=== PATIENT | female | born 2000 | race African-American/Black ===

== ENCOUNTER 2020-01-09 02:33 | Observation (INO) ==
[2020-01-09] MEDS ORDERED: ACETAMINOPHEN 1,000 MG/100 ML VIAL IV STA (02:52)
[2020-01-09] MEDS ORDERED: ONDANSETRON INJ 2 MG/ML 2 ML VIAL IV STA (02:53)
[2020-01-09] MEDS ORDERED: SODIUM CHLORIDE 0.9% 1000ML 1,000 ML IV SCH (03:00)
[2020-01-09 03:29] LABS: Basophils # (auto) 0.03 K/uL (0-0.2); Basophils % (auto) 0.2 %; Eosinophils # (auto) 0.04 K/uL (0-0.5); Eosinophils % (auto) 0.2 %; Hematocrit (blood only) 36.6 % (37-47); Immature Granulocytes # (auto) 0.05 K/uL (0.00-0.02); Immature Granulocytes % (auto) 0.3 %; Lymphocytes # (auto) 1.31 K/uL (1.2-3.4); Lymphocytes % (auto) 7.9 %; Mean Corpuscular Hgb Conc 35.5 g/dL (32-36); Mean Corpuscular Volume 87.1 fL (80-100); Mean Platelet Volume 9.2 fL (7.4-10.4); Monocytes # (auto) 1.69 K/uL (0.11-0.59); Monocytes % (auto) 10.2 %; Neutrophils # (auto) 13.44 K/uL (1.4-6.5); Neutrophils % (auto) 81.2 %; Platelet Count 307 K/uL (130-400); RDW Coefficient of Variation 12.9 % (11.5-14.5); RDW Standard Deviation 41.4 fL (36.4-46.3); White Blood Count 16.56 K/uL (4.8-10.8)
[2020-01-09 03:51] LABS: Albumin Globulin Ratio 0.9 (0.9-2); Albumin Level 3.5 gm/dl (3.4-5.0); BUN Creatinine Ratio 8.5 (10-20); Bilirubin,Total 1.4 mg/dl (0.2-1); Creatinine Clr Calc Pharmacy 115.9 ml/min; Est GFR (African American) 128.8; Est GFR (Non-African American) 111.1; Globulin 4.1 gm/dl (2.5-4.0); Magnesium 1.7 mg/dl (1.8-2.4); Potassium 3.7 mmol/L (3.5-5.1); Total Protein 7.6 gm/dl (6.4-8.2)
[2020-01-09 04:54] LABS: Appearance Urine Clear (Clear); Bilirubin Urine Negative (Negative); Blood Urine Negative (Negative); Color Urine Yellow; Glucose Urine UA Negative (Negative); Ketones Urine Negative (Negative); Leukocyte Esterase Urine Negative (Negative); Nitrite Urine Negative (Negative); Protein Urine Negative (Negative); Specific Gravity Urine 1.007 (1.000-1.030); Urobilinogen Urine Negative (Negative); pH Urine 6.5 (4.5-7.5)
[2020-01-09] MEDS ORDERED: IOVERSOL 100ml IV PRN (05:21)
[2020-01-09] MEDS ORDERED: cefOXitin 2,000 MG/60 ML BAG IV STA ×2 (06:04→06:54)
--- NOTE | 2020-01-09 06:49 | Surgery Consultation ---
Date of Consultation January 09, 2020 Assessment & Plan (1) Acute appendicitis: pt is a 19 year-old female who presents to ER with 2 days history RLQ pain, CT scan- acute appendicitis, IMP: acute appendicitis, Plan, I recommend to do laparoscopic appendectomy, possible open, D/W benefits, risks and alternatives of the surgery, the risks - infection, bleeding, abscess, pt understood, she signed consent, I answered all questions, cefoxitin 2gm IV, now, History of Present Illness History of Present Illness CC: Nausea HPI: 19F arrives for evaluation of nausea. Patient with 12 hours of nausea. Started after eating dinner. Associated epigastric and left upper abdominal pain. No radiation of pain. no vomiting. Slightly loose stools earlier. She used griselda seltzer and motrin without improvement. Symptoms wax and wane. No fevers, chills, syncope, chest pain, headache, neck pain, sob, back pain, rashes, swelling, nor other symptoms. No trauma nor injuries. No similar symptoms previously. I ( Rafael Loco MD ) got a call for consult acute appendicitis. I reviewed pt's H/P and CT scan with pt, pt is still have RLQ pain, ROS: See above HPI for pertinent positives & negatives. A total of 10 systems reviewed and were otherwise negative. Past Medical History: None Past Surgical History: oral Surgery Family History: Father with sinus infection Social History: [place] [employer] student, no smoking, from [place] Home Medications: None Allergies: None Vitals: Blood Pressure 128/80, Pulse 88, Resp 16, T 36.5C, O2 97% on RA Allergies Allergy/AdvReac Type Severity Reaction Status Date / Time No Known Allergies Allergy Unverified 01/09/20 02:43 Home Medications Home Medications Medication Instructions Recorded Confirmed Type No Known Home Medications 01/08/20 01/09/20 History Patient History Social History Feels Safe at Home: Yes Smoking Status: Never smoker Physical Exam Constitutional: WD/WN, vitals as above well developed and well nourished Eyes: PERRL, conjunctivae normal, anicteric sclerae ENMT: external ear and nose normal, oropharynx normal Neck: trachea midline, no thyromegaly Respiratory: normal respiratory effort, lungs clear to auscultation normal respiratory effort Cardiovascular: RRR, no murmur, no edema Rate/Rhythm: regular rate and regular rhythm Heart Sounds: normal S1 and normal S2 Gastrointestinal (Abdomen): normal bowel sounds, soft, nontender, no hepatosplenomegaly Percussion/Palpation: + abdomen tender and abdomen soft tenderness at RLQ, rebound pain +-, BS +, no distend, Musculoskeletal: no cyanosis or clubbing, extremities motor strength 5/5 Skin: no rashes, warm and dry Neurologic: patellar DTR's 2+ bilat, sensation intact Psychiatric: Orientation: alert and oriented x 3 Results & Data Vital Signs (Past 12 Hours) Vital Signs Temp Pulse Pulse Resp BP BP Pulse Ox 01/09/20 06:00 95 H 18 115/60 99 01/09/20 05:00 91 H 16 107/77 99 01/09/20 04:00 98 H 18 115/69 98 01/09/20 03:13 106 H 18 123/72 98 01/09/20 02:35 37.6 C H 106 H 18 127/77 97 Laboratory Results Abnormal lab results 01/09/20 01/09/20 Range/Units 03:00 03:00 WBC 16.56 H (4.8-10.8) K/uL Hct 36.6 L (37-47) % Immature Gran # (Auto) 0.05 H (0.00-0.02) K/uL Neut # (Auto) 13.44 H (1.4-6.5) K/uL Garza # (Auto) 1.69 H (0.11-0.59) K/uL BUN/Creatinine Ratio 8.5 L (10-20) Glucose 108 H (70-99) mg/dl Magnesium 1.7 L (1.8-2.4) mg/dl Total Bilirubin 1.4 H D (0.2-1) mg/dl AST 9 L (15-37) U/L Globulin 4.1 H (2.5-4.0) gm/dl Diagnostic Findings CT scan- acute appendicitis, 11mm
--- NOTE | 2020-01-09 06:50 | CT Scan Report ---
CT abd pelvis oral and IV con CT DOSE: 316.43 mGy.cm HISTORY: Pain. Nausea. abd pain TECHNIQUE: Multiaxial CT images of the abdomen and pelvis were performed following the use of intrave nous and oral contrast. A dose lowering technique was utilized adhering to the principles of ALARA. COMPARISON STUDY: None. FINDINGS: The lung bases are clear. The liver, spleen, gallbladder, pancreas, kidneys, and adrenal gl ands are within normal limits. No bowel wall thickening or obstruction. The pelvic organs are unremar kable. No suspicious lytic or blastic osseous lesions. The appendix is distended to a maximum diameter of 1 cm. There are findings of mild to moderate peria ppendiceal infiltrative changes trace amount of periappendiceal fluid. No evidence for drainable abscess or collection. Uterus is anteflexed. No free fluid within the pelvi c cul-de-sac. IMPRESSION: 1. Acute appendicitis. 2. Mild to moderate periappendiceal infiltrative change. 3. No evidence for drainable abscess or collection. ACT 112: Negative or not required by law. The above report was generated using voice recognition software. It may contain grammatical, syntax or spelling errors. Electronically signed by: Jean Odom M.D. 01/09/2020 6:49 AM
[2020-01-09] MEDS ORDERED: MoRPHine SULFATE 4 MG/ML 1 ML CARP\\VIAL IV STA (06:56)
--- NOTE | 2020-01-09 07:14 | Anesthesiology Consultation ---
Date of Service January 09, 2020 Assessment & Plan (1) Encounter for pre-operative examination: Chart Review Chart Review: Acceptable Risk for Surgery and Patient NOT seen in Pre Admission Testing Consults Requested none ASA ASA2 Proposed Anesthesia Anesthesia Type: General Risk / Benefits Reviewed With: PT / POA / Parent / Guardian, Accepts Plan and Informed Consent Obtained History Surgery Operation Date: 01/09/20 10:20 Proposed Procedures p Laparoscopic Appendectomy - Rafael Loco MD Height/Weight Height: 5 ft 5 in Weight: 72 kg Allergies Allergy/AdvReac Type Severity Reaction Status Date / Time No Known Allergies Allergy Unverified 01/09/20 02:43 Medications Home Medications Medication Instructions Recorded Confirmed Last Taken No Known Home Medications 01/08/20 01/09/20 Unknown Active Medications Generic Name Dose Route Start Last Admin Trade Name Freq PRN Reason Stop Dose Admin Ioversol 93 ml 01/09/20 05:21 01/09/20 05:22 Optiray 320 100ml IV 01/13/20 05:20 93 ml ONCE PRN Administration Interaction Checking NPO Date Last Intake of Fluids: 01/09/20 Time Last Intake of Fluids: 05:15 Date Last Intake of Solids: 01/08/20 Time Last Intake of Solids: 17:00 Past Medical History Medical History (Updated 01/09/20 @ 08:23 by Elizabeth Haynes MD) No significant medical problems Exercise / Class Metabolic Activity 1 > 8 Run/Swim/Ski/Tennis Past Family History Family History (Updated 01/09/20 @ 08:24 by Elizabeth Haynes MD) Mother Borderline diabetes mellitus Past Surgical History Surgical History (Updated 01/09/20 @ 08:22 by Elizabeth Haynes MD) History of oral surgery Past Anesthesia History No Hx of Anesthesia Complications History of PONV No Hx of PONV Social History Smoking Status: Never smoker Do You Dip or Chew Tobacco: No Hx Alcohol Use: Yes alcohol intake frequency: a few times a month Hx Substance Use: No Review of Systems Positive for abdominal pain and nausea, denies vomiting Physical Exam Vital Signs Last Vital Signs Temp 37.4 C 01/09/20 07:52 Pulse 109 H 01/09/20 07:52 Resp 20 01/09/20 07:52 BP 132/88 01/09/20 07:52 Pulse Ox 99 01/09/20 07:52 Constitutional not obese ENMT Mouth: no TMJ abnormality and oral opening not small Thyromental Distance: > or= 3.5 Finger Breadths Mallampati Class: III Neck normal visual inspection; neck extension not limited Respiratory normal respiratory effort Auscultation: lungs clear to auscultation bilaterally Cardiovascular Rate/Rhythm: regular rate and regular rhythm Heart Sounds: no murmur Neurologic moves all extremities Psychiatric Orientation: alert and oriented x 3 Testing Laboratory Results 01/09/20 03:00 01/09/20 03:00 Urine Color Yellow 01/09/20 04:17 Urine Appearance Clear (Clear) 01/09/20 04:17 Urine pH 6.5 (4.5-7.5) 01/09/20 04:17 Ur Specific [place] 1.007 (1.000-1.030) 01/09/20 04:17 Urine Protein Negative (Negative) 01/09/20 04:17 Urine Glucose (UA) Negative (Negative) 01/09/20 04:17 Urine Ketones Negative (Negative) 01/09/20 04:17 Urine Nitrite Negative (Negative) 01/09/20 04:17 Ur Leukocyte Esterase Negative (Negative) 01/09/20 04:17 01/09/20 04:17 POC Ur Test NEG
--- NOTE | 2020-01-09 07:35 | History & Physical Bridge Note ---
Date of Service January 09, 2020 History & Physical Bridge Note I have examined the patient, reviewed the History & Physical and in the interval since the performance of the History & Physical I have noted the following changes of clinical significance: no changes noted
[2020-01-09] MEDS ORDERED: BACITRACIN OINT 15 GM TUBE ONE (08:00)
[2020-01-09] MEDS ORDERED: BUPIVACAINE 0.5 % 5 MG/1 ML MPF 30ML VIAL ONE (08:00)
[2020-01-09] MEDS ORDERED: LIDOCAINE HCL 1% 20 ML VIAL ONE (08:01)
[2020-01-09] MEDS ORDERED: fentaNYL citrate 100 MCG/2 ML VIAL ONE ×2 (08:14→08:52)
[2020-01-09] MEDS ORDERED: MIDAZOLAM HCL 1 MG/ML 2ML VIAL ONE (08:14)
[2020-01-09] MEDS ORDERED: ONDANSETRON INJ 2 MG/ML 2 ML VIAL IV PRN ×2 (08:31→09:36)
[2020-01-09] MEDS ORDERED: ePHEDrine sulfate 50 MG/ML AMP IV PRN (08:31)
[2020-01-09] MEDS ORDERED: ATROPINE SULFATE 0.1 MG/ML 10ML SYR IV PRN (08:31)
[2020-01-09] MEDS ORDERED: HYDROmorphone INJ 1 MG/ML SYRINGE IV PRN (08:31)
[2020-01-09] MEDS ORDERED: fentaNYL citrate 100 MCG/2 ML VIAL IV PRN (08:31)
--- NOTE | 2020-01-09 09:24 | Post Operative Brief Note ---
Immediate Post Op Note v1 Date of Surgery January 09, 2020 Pre & Post Diagnosis Operation Date: 01/09/20 10:20 Pre-Op Diagnosis: acute appendicitis Post-Op Diagnosis: acute appendicitis I identified the patient and participated in the time-out.: Yes Procedure Operation Date: 01/09/20 10:20 Actual Procedures p Laparoscopic Appendectomy(Not Applicable) - Rafael Loco MD Surgeon Rafael Loco MD [employer] GENESIS [place] Estimated Blood Loss 10 Findings Consistent with Post-Op Diagnosis Fluids 700ml Specimens appendix Anesthesia Type General Complications none Disposition Accompanied Patient To Recovery: Yes Disposition: Recovery Room Overlapping Procedure I was immediately available: during the entire case.
[2020-01-09] MEDS ORDERED: HYDROmorphone INJ 0.5 MG/0.5 ML SYR IV PRN (09:36)
[2020-01-09] MEDS ORDERED: PROPOFOL IV EMULSION 10 MG/ML 20 ML VIAL IV ONE (09:56)
[2020-01-09] MEDS ORDERED: ONDANSETRON INJ 2 MG/ML 2 ML VIAL ONE (09:56)
[2020-01-09] MEDS ORDERED: NEOSTIGMINE METHYLSULFATE 5 MG/5 ML SYR ONE (09:56)
[2020-01-09] MEDS ORDERED: LIDOCAINE HCL 2% 2 ML VIAL/AMP(20MG/ML) INFIL ONE (09:56)
[2020-01-09] MEDS ORDERED: DEXAMETHASONE SOD INJ 4 MG/ML VIAL ONE (09:56)
[2020-01-09] MEDS ORDERED: GLYCOPYRROLATE 0.2 MG/ML VIAL ONE (09:56)
[2020-01-09] MEDS ORDERED: ROCURONIUM BROMIDE 10 MG/ML 5 ML VIAL ONE (09:56)
--- NOTE | 2020-01-09 10:07 | Operative Report ---
DATE OF OPERATION: 01/09/2020 PREOPERATIVE DIAGNOSIS: Acute appendicitis. POSTOPERATIVE DIAGNOSIS: Acute appendicitis. OPERATIVE PROCEDURE: Laparoscopic appendectomy. SURGEON: Rafael Loco MD. ANESTHESIA: General. ESTIMATED BLOOD LOSS: About 10 mL. FINDINGS: Acute appendicitis. COMPLICATIONS: None. INDICATIONS FOR THE PROCEDURE: This is a 19-year-old female who presented to the ED with couple days' history of right lower quadrant pain. The patient had a CT scan diagnosis of acute appendicitis. I recommended to do laparoscopic appendectomy, possible open. I did talk to the patient about the benefit, risk, alternate procedure. I indicated the risks may include but not limited to such as bleeding, infection, injury to the bowel, abscess. The patient understands. I also talked to the patient's mom on the phone about the procedure, benefits, risks and alternatives to the procedure. She understands. The patient signed informed consent and I answered all questions. DETAILS OF PROCEDURE: We brought the patient to the OR, put the patient in supine position. The patient received SCD on bilateral legs to prevent DVT. Also, patient received 2 g of cefoxitin IV for prophylactic antibiotic and the patient received general anesthesia without difficulty. The abdomen was prepped and draped in routine sterile fashion. After timeout, I injected the local anesthesia by using 1% lidocaine mixed with 0.5% Marcaine just above the umbilicus. Then, I made a small incision just above the umbilicus, opened fascia and opened peritoneum under direct vision, put a Maximo trocar in, connected to CO2 to create pneumoperitoneum, flow rate is 6 liters per minute, pressure not more than 14 mmHg. Once we got a nice pneumoperitoneum, we put a camera in, looked around the abdomen and the abdomen shows there was some free flowing, yellow-colored fluid in the pelvic area. We suctioned and then we found the patient had significant inflammation of appendix with enlarged appendix to a size of about 1.1 cm and also there was some pus on the surface of the appendix. At this moment, we mobilized the appendix and used the harmonic to take down the appendiceal. Then, we used the 45 mm Endo-AFSHIN staple for transection on the base of the appendix. Again, the appendix shows early gangrene. Then, we rechecked the staple line. It is intact, no leak, no active bleeding. Then, we removed the appendix through the catch bag. Then, we reinserted Maximo trocar in, connected to CO2 to create pneumoperitoneum, again looked around the abdomen, the staple line intact and no leak and no active bleeding. Then, we removed all trocars under direct vision. No active bleeding from the trocar site. Pneumoperitoneum was released. I now closed the umbilical incision, fascial layer by using #1 Vicryl [id number] x2, closed the subcutaneous layer by using 2-0 Vicryl interruptedly, closed skin by using 4-0 Vicryl continuous running. Once we put the camera in, we did another two 5 mm trocars on the left lower quadrant area. Once all trocars in, we did the above appendectomy. Once we finished the procedure, we removed the specimen and then we removed all trocars under direct vision. No active bleeding from the trocar sites. Then, we closed all the incision and once we closed the umbilical incision, then we closed another two 5 mm trocar site skin only by using 4-0 Vicryl and we put the dressing on. The patient tolerated the procedure well. All instrument, needle and sponge count were correct x2 at the end of the case. The patient was transferred to recovery room in stable condition. After the procedure, I did talk to the patient's mom on the phone about the OR finding and the procedure we did, she understands. I attest to the content of the Intraoperative Record and any orders documented therein. Any exception s are noted below.
--- NOTE | 2020-01-09 10:32 | Anesthesiology Progress Note ---
Date of Service January 09, 2020 Anesthesia Post Procedure Vital Signs Vital Signs: Temp Pulse Pulse Pulse Resp BP BP 01/09/20 10:20 36.7 C 71 16 107/68 01/09/20 10:10 72 16 107/69 01/09/20 10:00 77 17 109/65 01/09/20 09:50 82 16 103/63 01/09/20 09:42 36.4 C L 95 H 20 105/65 01/09/20 07:52 37.4 C 109 H 20 132/88 01/09/20 07:02 94 H 16 144/81 H 01/09/20 06:00 95 H 18 115/60 01/09/20 05:00 91 H 16 107/77 01/09/20 04:00 98 H 18 115/69 01/09/20 03:13 106 H 18 123/72 01/09/20 02:35 37.6 C H 106 H 18 127/77 Pulse Ox 01/09/20 10:20 100 01/09/20 10:10 100 01/09/20 10:00 100 01/09/20 09:50 100 01/09/20 09:42 100 01/09/20 07:52 99 01/09/20 07:02 97 01/09/20 06:00 99 01/09/20 05:00 99 01/09/20 04:00 98 01/09/20 03:13 98 01/09/20 02:35 97 Pain Intensity Medial Abdomen: Pain Intensity: 6 Transfer of Care Handoff Completed per policy Notes Mental Status: alert / awake / arousable and participated in evaluation Patient Amnestic to Procedure: Yes Nausea / Vomiting: adequately controlled Pain: adequately controlled Airway Patency, RR, SpO2: stable & adequate BP & HR: stable & adequate Hydration State: stable & adequate Anesthetic Complications: no major complications apparent and Pt Satisfied with anesthetic care
[2020-01-09] MEDS: LACTATED RINGER'S 1,000 ML IV SCH ×2 (11:08→23:38)
[2020-01-09] MEDS ORDERED: ACETAMINOPHEN 325 MG TAB PO PRN (12:02)
[2020-01-09] MEDS: OXYCODONE/ACETAMINOPHEN 5mg/325mg TAB PO PRN ×2 (15:01→19:14)
[2020-01-10] MEDS: OXYCODONE/ACETAMINOPHEN 5mg/325mg TAB PO PRN ×2 (05:26→09:52)
[2020-01-10 07:20] LABS: Basophils # (auto) 0.02 K/uL (0-0.2); Basophils % (auto) 0.1 %; Eosinophils # (auto) 0.07 K/uL (0-0.5); Eosinophils % (auto) 0.5 %; Hematocrit (blood only) 31.5 % (37-47); Hemoglobin 10.7 g/dL (12.0-16.0); Immature Granulocytes # (auto) 0.05 K/uL (0.00-0.02); Immature Granulocytes % (auto) 0.3 %; Lymphocytes # (auto) 2.32 K/uL (1.2-3.4); Mean Corpuscular Hemoglobin 30.1 pg (25-34); Mean Corpuscular Volume 88.5 fL (80-100); Mean Platelet Volume 9.3 fL (7.4-10.4); Monocytes % (auto) 6.5 %; Neutrophils % (auto) 77.6 %; Platelet Count 266 K/uL (130-400); RDW Coefficient of Variation 13.1 % (11.5-14.5); RDW Standard Deviation 42.9 fL (36.4-46.3); Red Blood Count 3.56 M/uL (4.2-5.4); White Blood Count 15.46 K/uL (4.8-10.8)
--- NOTE | 2020-01-10 08:03 | Emergency Department Note ---
History of Present Illness General Chief complaint: Abdominal Pain Stated complaint: SEVERE ABDOMINAL PAIN,FATIGUE Time Seen by Provider: 01/09/20 02:40 History of Present Illness Maximum Pain Intensity: 5 This is a 19-year-old female presenting to the emergency department for evaluation of continued abdominal pain over the past 2 days. The patient was initially seen and evaluated at this facility yesterday for this complaint. At that time her discomfort had occurred after eating and she did have diarrheal illness. Blood work did show a slightly elevated white blood cell count of around 12,000 but no other significant abnormalities. She did have a biliary ultrasound that was negative. The patient did feel well for discharge home, and slept most of the day today. She did try to eat around 5 PM, but developed return of her abdominal discomfort. Her pain seems to have migrated into the lower abdomen bilaterally, which is new. She has not had any distinct fever at home. Her diarrhea has stopped. She is nauseated and tired. No chest pain, chest tightness, or shortness of breath. She rates her current discomfort a 5/10. Home Medications Home Medications Medication Instructions Recorded Confirmed Type No Known Home Medications 01/08/20 01/09/20 History Allergies Allergy/AdvReac Type Severity Reaction Status Date / Time No Known Allergies Allergy Unverified 01/09/20 02:43 Past Med/Surg History Medical History No significant medical problems Surgical History History of oral surgery Family History (Updated 01/09/20 @ 08:24 by Elizabeth Haynes MD) Mother Borderline diabetes mellitus Social History Preferred Language: Tajik Communication Ability: Effective X Ray Control Equipment Repairer Required: No Beliefs That Will Affect Care: None Feels Safe at Home: Yes Smoking Status: Never smoker Do You Dip or Chew Tobacco: No ; Hx Alcohol Use: Yes Hx Substance Use: No Review of Systems A total of 10 systems reviewed and were otherwise negative Physical Exam Vital Signs Vital Signs Temp Pulse Resp BP Pulse Ox 37.6 C H 106 H 18 127/77 97 01/09/20 02:35 01/09/20 02:35 01/09/20 02:35 01/09/20 02:35 01/09/20 02:35 VITALS: Vitals are noted on the nurse's note and reviewed by myself. Vital signs with tachycardia and mild fever GENERAL: Well-developed, well-nourished, female, who is in no acute distress and resting comfortably. Patient is cooperative with the examination. HEAD: Normocephalic atraumatic. EARS: External ear normal. External auditory canals clear, tympanic membranes pearly martin without erythema or effusion bilaterally. EYES: Pupils equal round and reactive to light and accommodation. Conjunctivae without injection, sclerae without icterus. Extraocular movements intact. NOSE: Patent, turbinates without inflammation or discharge. MOUTH: Mucous membranes moist. Tonsils are not enlarged. Pharynx without erythema, blood, or exudate. Uvula midline. Airway patent. NECK: Supple without nuchal rigidity. No lymphadenopathy. No thyromegaly. Cervical spine is nontender. HEART: Regular rate and rhythm without murmurs gallops or rubs. LUNGS: Clear to auscultation bilaterally without wheezes, rales or rhonchi. No retractions or accessory muscle use. ABDOMEN: Positive normal bowel sounds x 4. Soft left lower and right lower quadrant tenderness. No rebound or guarding. MUSCULOSKELETAL: No muscle atrophy, erythema, or edema noted. Full range of motion in all extremities. SKIN: The skin was without rashes, erythema, edema, or bruising. Capillary refill less than 2 seconds. Course Administered Medications Acetaminophen (Tylenol) 650 mg PO Q4H PRN PRN Reason: Mild Pain Stop: 02/08/20 12:01 Last Admin: 01/09/20 23:38 Dose: 650 mg Documented by: [id number] Cefoxitin Sodium 1,000 mg/ (Dextrose) 60 mls @ 100 mls/hr IV Q6H [facility] Stop: 01/11/20 11:59 Last Infusion: 01/10/20 06:02 Dose: 0 mls/hr Documented by: [id number] Admin: 01/10/20 05:26 Dose: 100 mls/hr Documented by: [id number] Infusion: 01/10/20 00:19 Dose: 0 mls/hr Documented by: [id number] Admin: 01/09/20 23:39 Dose: 100 mls/hr Documented by: [id number] Infusion: 01/09/20 18:08 Dose: 0 mls/hr Documented by: [id number] Admin: 01/09/20 17:32 Dose: 100 mls/hr Documented by: [id number] Infusion: 01/09/20 12:43 Dose: 0 mls/hr Documented by: [id number] Admin: 01/09/20 12:20 Dose: Not Given Documented by: [id number] Admin: 01/09/20 12:07 Dose: 100 mls/hr Documented by: [id number] Lactated Ringer's (Lr) 1,000 mls @ 80 mls/hr IV .[id number] LISA Stop: 02/08/20 09:44 Last Admin: 01/09/20 23:38 Dose: 80 mls/hr Documented by: [id number] Infusion: 01/09/20 23:38 Dose: 80 mls/hr Documented by: [id number] Admin: 01/09/20 11:08 Dose: 80 mls/hr Documented by: [id number] Oxycodone/Acetaminophen (Percocet 5mg/325mg) 1 tab PO Q4H PRN PRN Reason: Pain Stop: 01/23/20 09:35 Last Admin: 01/10/20 05:26 Dose: 1 tab Documented by: [id number] Admin: 01/09/20 19:14 Dose: 1 tab Documented by: [id number] Admin: 01/09/20 15:01 Dose: 1 tab Documented by: [id number] Discontinued Medications Bacitracin (Bacitracin) Confirm Administered Dose 45 appln .ROUTE .STK-MED ONE Stop: 01/09/20 08:01 Last Admin: 01/09/20 09:11 Dose: 5 appln Documented by: [id number] Bupivacaine HCl (Marcaine 0.5% Mpf) Confirm Administered Dose 30 ml .ROUTE .STK- MED ONE Stop: 01/09/20 08:01 Last Admin: 01/09/20 09:21 Dose: 20 ml Documented by: [id number] Sodium Chloride (Nss 1000ml) 1,000 mls @ 999 mls/hr IV .Q1H1M LISA Stop: 01/09/20 04:00 Last Infusion: 01/09/20 04:20 Dose: 0 mls/hr Documented by: [id number] Admin: 01/09/20 03:13 Dose: 999 mls/hr Documented by: [id number] Acetaminophen (Ofirmev) 1,000 mg in 100 mls @ 400 mls/hr IV NOW STA Stop: 01/09/20 03:06 Last Infusion: 01/09/20 03:28 Dose: 0 mls/hr Documented by: [id number] Admin: 01/09/20 03:13 Dose: 400 mls/hr Documented by: [id number] Cefoxitin Sodium (Mefoxin) 2,000 mg in 60 mls @ 100 mls/hr IV NOW STA Stop: 01/09/20 06:39 Last Infusion: 01/09/20 06:57 Dose: 0 mls/hr Documented by: [id number] Admin: 01/09/20 06:23 Dose: 100 mls/hr Documented by: [id number] Ioversol (Optiray 320 100ml) 93 ml IV ONCE PRN PRN Reason: Interaction Checking Stop: 01/13/20 05:20 Last Admin: 01/09/20 05:22 Dose: 93 ml Documented by: [id number] Lidocaine HCl (Xylocaine 1% (Local)) Confirm Administered Dose 20 ml .ROUTE .Tenders.es-MED ONE Stop: 01/09/20 08:02 Last Admin: 01/09/20 09:22 Dose: 20 ml Documented by: [id number] Morphine Sulfate (Morphine Sulfate) 4 mg IV NOW STA Stop: 01/09/20 06:57 Last Admin: 01/09/20 07:03 Dose: 4 mg Documented by: [id number] Ondansetron HCl (Zofran) 4 mg IV NOW STA Stop: 01/09/20 02:54 Last Admin: 01/09/20 03:13 Dose: 4 mg Documented by: [id number] Medical Decision Making Differential Diagnosis Differential diagnosis: Etiologies such as biliary colic, cholecystitis, hepatitis, pancreatitis, card iac disease, pancreatitis, gastritis, peptic ulcer disease, appendicitis, cystitis, diverticulitis, mesenteric ischemia, inflammatory bowel disease, ileus, bowel obstruction, testicular/adnexal torsion, aortic pathology, shingles, as well as others were considered Laboratory Data Result diagrams: 01/10/20 07:01 01/09/20 03:00 Lab Results 01/09/20 01/09/20 01/09/20 Range/Units 03:00 03:00 03:18 WBC 16.56 H (4.8-10.8) K/uL RBC 4.20 (4.2-5.4) M/uL Hgb 13.0 (12.0-16.0) g/dL Hct 36.6 L (37-47) % MCV 87.1 (80-100) fL MCH 31.0 (25-34) pg MCHC 35.5 (32-36) g/dL RDW Std Deviation 41.4 (36.4-46.3) fL RDW Coeff of Patti 12.9 (11.5-14.5) % Plt Count 307 (130-400) K/uL MPV 9.2 (7.4-10.4) fL Immature Gran % (Auto) 0.3 % Neut % (Auto) 81.2 % Lymph % (Auto) 7.9 % [place] % (Auto) 10.2 % Eos % (Auto) 0.2 % Baso % (Auto) 0.2 % Immature Gran # (Auto) 0.05 H (0.00-0.02) K/uL Neut # (Auto) 13.44 H (1.4-6.5) K/uL Lymph # (Auto) 1.31 (1.2-3.4) K/uL [place] # (Auto) 1.69 H (0.11-0.59) K/uL Eos # (Auto) 0.04 (0-0.5) K/uL Baso # (Auto) 0.03 (0-0.2) K/uL Sodium 137 (136-145) mmol/L Potassium 3.7 (3.5-5.1) mmol/L Chloride 106 (98-107) mmol/L Carbon Dioxide 25 (21-32) mmol/L Anion Gap 6.0 (3-11) BUN 7 D (7-18) mg/dl Creatinine 0.77 (0.6-1.2) mg/dl Est Cr Clr Drug Dosing 115.9 ml/min Est GFR ( Amer) 128.8 Est GFR (Non-Af Amer) 111.1 BUN/Creatinine Ratio 8.5 L (10-20) Glucose 108 H (70-99) mg/dl Lactate (0.4-2.0) mmol/L Calcium 9.0 (8.5-10.1) mg/dl Magnesium 1.7 L (1.8-2.4) mg/dl Total Bilirubin 1.4 H D (0.2-1) mg/dl AST 9 L (15-37) U/L ALT 19 (12-78) U/L Alkaline Phosphatase 70 (45-117) U/L Total Protein 7.6 (6.4-8.2) gm/dl Albumin 3.5 (3.4-5.0) gm/dl Globulin 4.1 H (2.5-4.0) gm/dl Albumin/Globulin Ratio 0.9 (0.9-2) Lipase 86 (73-393) U/L Urine Color Urine Appearance (Clear) Urine pH (4.5-7.5) Ur Specific Bo[place] (1.000-1.030) Urine Protein (Negative) Urine Glucose (UA) (Negative) Urine Ketones (Negative) Urine Blood (Negative) Urine Nitrite (Negative) Urine Bilirubin (Negative) Urine Urobilinogen (Negative) Ur Leukocyte Esterase (Negative) POC Ur Test (NEG) Influenza Type A Ag Neg for Influ A (Neg) Influenza Type B Ag Neg for Influ B (Neg) 01/09/20 01/09/20 01/09/20 Range/Units 03:21 04:17 04:17 WBC (4.8-10.8) K/uL RBC (4.2-5.4) M/uL Hgb (12.0-16.0) g/dL Hct (37-47) % MCV (80-100) fL MCH (25-34) pg MCHC (32-36) g/dL RDW Std Deviation (36.4-46.3) fL RDW Coeff of Patti (11.5-14.5) % Plt Count (130-400) K/uL MPV (7.4-10.4) fL Immature Gran % (Auto) % Neut % (Auto) % Lymph % (Auto) % [place] % (Auto) % Eos % (Auto) % Baso % (Auto) % Immature Gran # (Auto) (0.00-0.02) K/uL Neut # (Auto) (1.4-6.5) K/uL Lymph # (Auto) (1.2-3.4) K/uL [place] # (Auto) (0.11-0.59) K/uL Eos # (Auto) (0-0.5) K/uL Baso # (Auto) (0-0.2) K/uL Sodium (136-145) mmol/L Potassium (3.5-5.1) mmol/L Chloride (98-107) mmol/L Carbon Dioxide (21-32) mmol/L Anion Gap (3-11) BUN (7-18) mg/dl Creatinine (0.6-1.2) mg/dl Est Cr Clr Drug Dosing ml/min Est GFR ( Amer) Est GFR (Non-Af Amer) BUN/Creatinine Ratio (10-20) Glucose (70-99) mg/dl Lactate 0.8 (0.4-2.0) mmol/L Calcium (8.5-10.1) mg/dl Magnesium (1.8-2.4) mg/dl Total Bilirubin (0.2-1) mg/dl AST (15-37) U/L ALT (12-78) U/L Alkaline Phosphatase (45-117) U/L Total Protein (6.4-8.2) gm/dl Albumin (3.4-5.0) gm/dl Globulin (2.5-4.0) gm/dl Albumin/Globulin Ratio (0.9-2) Lipase (73-393) U/L Urine Color Yellow Urine Appearance Clear (Clear) Urine pH 6.5 (4.5-7.5) Ur Specific Bo[place] 1.007 (1.000-1.030) Urine Protein Negative (Negative) Urine Glucose (UA) Negative (Negative) Urine Ketones Negative (Negative) Urine Blood Negative (Negative) Urine Nitrite Negative (Negative) Urine Bilirubin Negative (Negative) Urine Urobilinogen Negative (Negative) Ur Leukocyte Esterase Negative (Negative) POC Ur Test NEG (NEG) Influenza Type A Ag (Neg) Influenza Type B Ag (Neg) Imaging Data Radiologist's Impression: CT abd pelvis oral and IV con CT DOSE: 316.43 mGy.cm HISTORY: Pain. Nausea. abd pain TECHNIQUE: Multiaxial CT images of the abdomen and pelvis were performed following the use of intravenous and oral contrast. A dose lowering technique was utilized adhering to the principles of ALARA. COMPARISON STUDY: None. FINDINGS: The lung bases are clear. The liver, spleen, gallbladder, pancreas, kidneys, and adrenal glands are within normal limits. No bowel wall thickening or obstruction. The pelvic organs are unremarkable. No suspicious lytic or blastic osseous lesions. The appendix is distended to a maximum diameter of 1 cm. There are findings of mild to moderate periappendiceal infiltrative changes trace amount of periappendiceal fluid. No evidence for drainable abscess or collection. Uterus is anteflexed. No free fluid within the pelvic cul-de-sac. IMPRESSION: 1. Acute appendicitis. MDM Narrative Physical exam and history were performed. Nursing notes, EMR, and Medication List were personally reviewed. Patient appears to have continued abdominal discomfort over the past 2 days. On presentation she is tachycardic and slightly febrile, which is new. Additionally her discomfort seems to have migrated more towards the lower abdomen. IV access was established and labs were obtained. She was hydrated with normal saline and given IV Tylenol and IV Zofran for comfort. Influenza swab was gathered. Because of her symptoms a CT with IV and oral contrast was performed. The patient's blood work is as above and was reviewed. She does have an increase of her white blood cell count to 16,000. She does not have a significant anemia or gross electrolyte imbalance. Lipase and transaminases are not diagnostic. Urine appears clear and influenza swab is negative. CT scan was reviewed by myself and radiology, and does appear consistent with acute appendicitis. On reevaluation the patient continued to have some mild abdominal discomfort and was given IV morphine for comfort. I did review her findings with her at length and her questions were answered. The case was then discussed with general surgery, Dr. Loco, who agreed to evaluate the patient here in the ER. Please see their dictation for further patient course, plan, and disposition. The chart was completed utilizing [employer] Speech Voice Recognition Software. G rammatical errors, random word insertions, pronoun errors, and incomplete sentences are an occasional consequence of this system due to software limitations, ambient noise, and hardware issues. Any formal questions or concerns about the content, text, or information contained within the body of this dictation should be directly addressed to the provider for clarification. . Impression & Plan Acute appendicitis, Abdominal pain Discharge Plan Visit Data *Final* Discharge Date/Time: 01/09/20 07:19 Chief Complaint: Abdominal Pain Stated Complaint: SEVERE ABDOMINAL PAIN,FATIGUE ED Provider: [address] ED Midlevel Provider: Scotty Browne Discharge Problem: Acute appendicitis, Abdominal pain Patient Disposition: Still a Patient Discharge Instructions Interventions: ED Discharge Assessment Last Done: 01/09/20 07:19 Discharge Problem: Acute appendicitis Qualifiers: Acute appendicitis type: unspecified acute appendicitis type Qualified Code(s): K35.80 - Unspecified acute appendicitis Abdominal pain Qualifiers: Abdominal location: unspecified location Qualified Code(s): R10.9 - Unspecified abdominal pain
--- NOTE | 2020-01-10 10:57 | Surgery Progress Note ---
Date of Service January 10, 2020 Assessment & Plan (1) Acute appendicitis: POD # 1 s/p laparoscopic appendectomy -vitals stable, afebrile - leukocytosis 15K , improved -preop pain resolved, postop tenderness controlled - no n/v Plan: Advance diet to regular ambulate hallway continue PO Percocet prn pain Okay for discharge Discharge instructions reviewed Rx for Percocet prn pain, Cipro/Flagyl for 5 days F/u surgery office in 1-[address] Loco has seen patient, agrees with above. Subjective feeling well this morning preoperative pain resolved, tender at incisions tolerating clear liquids passed flatus urinating without difficulty no chest pain or shortness of breath no nausea or vomiting Physical Exam Constitutional: WD/WN, vitals as above no acute distress Respiratory: normal respiratory effort; no respiratory distress Gastrointestinal (Abdomen): Inspection/Auscultation: abdomen normal to inspection; abdomen not distended Percussion/Palpation: + abdomen tender (mild at incision sites) and abdomen soft; no guarding and abdomen not rigid Skin: no rashes, warm and dry + incision (Covered with dressings, mild spotting present, dry) Psychiatric: A+Ox3, euthymic affect Results & Data Vital Signs (Past 12 Hours) Vital Signs Temp Pulse Pulse Pulse Resp BP Pulse Ox 01/10/20 10:43 36.8 C 76 87 86 16 104/62 97 01/10/20 07:20 36.8 C 86 16 104/62 97 01/10/20 04:11 36.8 C 87 16 101/62 98 01/09/20 22:55 36.8 C 75 16 104/67 98 Laboratory Results 01/10/20 Range/Units 07:01 WBC 15.46 H (4.8-10.8) K/uL RBC 3.56 L (4.2-5.4) M/uL Hgb 10.7 L (12.0-16.0) g/dL Hct 31.5 L (37-47) % MCV 88.5 (80-100) fL MCH 30.1 (25-34) pg MCHC 34.0 (32-36) g/dL RDW Std Deviation 42.9 (36.4-46.3) fL RDW Coeff of Patti 13.1 (11.5-14.5) % Plt Count 266 (130-400) K/uL MPV 9.3 (7.4-10.4) fL Immature Gran % (Auto) 0.3 % Neut % (Auto) 77.6 % Lymph % (Auto) 15.0 % [place] % (Auto) 6.5 % Eos % (Auto) 0.5 % Baso % (Auto) 0.1 % Immature Gran # (Auto) 0.05 H (0.00-0.02) K/uL Neut # (Auto) 12.00 H (1.4-6.5) K/uL Lymph # (Auto) 2.32 (1.2-3.4) K/uL [place] # (Auto) 1.00 H (0.11-0.59) K/uL Eos # (Auto) 0.07 (0-0.5) K/uL Baso # (Auto) 0.02 (0-0.2) K/uL Microbiology 01/09/20 03:21 Aerobic Blood Culture - Preliminary Blood No growth in Aerobic bottle after 24 hours. Anaerobic Blood Culture - Preliminary No growth in Anaerobic bottle after 24 hours. 01/09/20 03:00 Aerobic Blood Culture - Preliminary Blood No growth in Aerobic bottle after 24 hours. Anaerobic Blood Culture - Preliminary No growth in Anaerobic bottle after 24 hours. (1) Acute appendicitis Acute appendicitis type: unspecified acute appendicitis type Qualified Code(s): K35.80 - Unspecified acute appendicitis
--- NOTE | 2020-01-10 11:41 | Discharge Summary ---
Date of Service January 10, 2020 Admission HPI Per Admitting Provider HPI: 19F arrives for evaluation of nausea. Patient with 12 hours of nausea. Started after eating dinner. Associated epigastric and left upper abdominal pain. No radiation of pain. no vomiting. Slightly loose stools earlier. She used griselda seltzer and motrin without improvement. Symptoms wax and wane. No fevers, chills, syncope, chest pain, headache, neck pain, sob, back pain, rashes, swelling, nor other symptoms. No trauma nor injuries. No similar symptoms previously. I ( Rafael Loco MD ) got a call for consult acute appendicitis. I reviewed pt's H/P and CT scan with pt, pt is still have RLQ pain, Principal Diagnosis Acute appendicitis Discharge Data Allergies Allergy/AdvReac Type Severity Reaction Status Date / Time No Known Allergies Allergy Unverified 01/09/20 02:43 Consultations 01/09/20 06:27 Consult General Surgery Stat Procedures Performed Operation Date: 01/09/20 10:20 Actual Procedures p Laparoscopic Appendectomy(Not Applicable) - Rafael Loco MD Ordered Studies 01/09/20 02:52 CT abd pelvis oral and IV con Urgent Hospital Course (1) Acute appendicitis: Patient was taken to operating room from emergency department for laparoscpoic appendectomy possible open by Dr. Loco. Patient found to have acute appendicitis with some fibrinuous exudate but no yolande perforation. There was some cloudy fluid in the pelvis which was removed. Patient tolerated procedure well and was transferred to recovery then to medical/surgical floor for postoperative care. Diet was adavnced to clear liquids, IV Cefoxitin was continued postop, PO Percocet was ordered as needed for pain. POD # 1 s/p laparoscopic appendectomy vitals stable, afebrile, leukocytosis 15K (improved) ,preop pain resolved, postop tenderness controlled, no n/v. Advanced diet as tolerated. Encouraged ambulating hallway. Mother and patient's questions answered. Patient was discharged home on POD # 1 in stable condition with 5 day course of PO Cipro/Flagyl and Percocet prn pain. Follow-up surgical office in 1- 2 weeks. Total Time Total Time Spent Total Time Spent (In Minutes): 20 Total Time Includes: Examination of the Patient, Discharge Planning and Medication Reconciliation Discharge Plan Discharge Items Patient Disposition: Home - Self-Care Reason For Visit: ACUTE APPENDICITIS Discharge Diagnosis: Acute appendicitis Activity: Per Instructions section Non-emergency contact: Surgeon Call non-emergency contact if: you have any medication questions, your pain is not controlled, your pain is worsening, your pain is concerning for you, you have a fever, your temperature is above 101, your wound has increased redness, your wound has increased drainage and your wound pain has increased Follow-up/Referrals: [facility] [Primary Care Provider] - 01/17/20 10:00 am Diet: Regular Addtl Attending Provider Instructions: Post-Surgical ~Discharge Instructions Activity Recommendations: - lifting limitation: (25 pounds for 4 weeks), - exercise/sex/sports limit: (nonstrenuous for 2 weeks or until cleared by surgeon), - driving or machine use limit: (no driving while taking narcotic pain medication, - Shower/bathe limit: (may shower in 3 days) Diet: - Resume previous diet as tolerated. SPECIAL CARE INSTRUCTIONS: - May shower in 3 days. Sponge bath and wash hair in meantime. After 3 days, remove outer dressings and shower. - Leave steri strips on for one week and then remove. - Replace small bandage on incisions daily for 1 week. - Call the surgeon's office with any questions or concerns - - (ex. temperature higher than 101 degrees F, excessive bleeding or pain). MEDICATIONS: - Resume previous medications unless instructed otherwise by your surgeon. - Percocet 1 every 4 hours, as needed for moderate to severe pain. - You can alternate extra strength Tylenol and Ibuprofen for mild pain. -650 mg of Tylenol every 6 hours as needed -600 mg of Ibuprofen every 6 hours as needed (take with food) - Recommend stool softener (Colace) daily while taking narcotic pain medication as it can cause constipation. Drink plenty of water and daily walking to also prevent constipation. FOLLOW UP VISIT: - Please call the office to schedule a two week follow-up appointment (prior to your scheduled [place] trip preferred) Office number Would recommend wear compression socks during long travel and drinking plenty of water during long bus/car rides. Get out a walk when at any stops. Would also recommend wearing compression socks during your flight and if you can walk the aisle during your plane ride. Pending Studies at Discharge: Yes (Appendix pathology, will be reviewed at follow-up visit) Stand-Alone Forms: [facility], Work/School Release (Inpt), Smoking Cessation Medications and DC Order Prescriptions: New oxycodone-acetaminophen [Percocet] 5-325 mg Tablet 1 tab PO Q4H PRN (Reason: pain) Qty: 12 RF: 0 ciprofloxacin HCl [Cipro] 500 mg tablet 500 mg PO BID Qty: 10 RF: 0 metronidazole [Flagyl] 500 mg tablet 500 mg PO TID Qty: 15 RF: 0 No Action No Known Home Medications RF: 0 Discharge Orders: Discharge Order (Routine); Ordered 01/10/20 Ordered By: Asha Henderson Admission Data Admit Date/Time: 01/09/20 09:36 Attending Provider: Rafael Loco Admit Provider: Rafael Loco Primary Care Provider: [facility] Other Providers: Rafael Loco Other Interventions: Discharge Summary Assessment (RN) Last Done: 01/10/20 10:43
== END 2020-01-10 12:00 | disposition home or self-care (01) ==
LOC: ED 02:33 → OR 07:19 → 3N 07:19